=== PATIENT | female | born 1985 | race Caucasian/White ===

== ENCOUNTER 2017-12-04 01:40 | Emergency (ER) | payer OTHER ==
--- NOTE | 2017-12-04 01:55 | PDOC ---
Attending Attestation - HPI HPI: 12/04/17 03:39 The patient is a 32 year old female, with no significant PMH who presents to the emergency department with vaginal bleeding today. The patient reports that she has been experiencing some bleeding with clots today. She states that she has gone through 2 pads. She states that she was about 5 weeks when she found out that she was surely . The patient reports that she has an OB appointment in one week with her OB. she denies any urinary symptoms. The patient denies any other symptoms. She denies any fever, chills, nausea, vomit, diarrhea and constipation. She denies chest pain, shortness of breath, headache and dizziness. The patient denies any other complaints. PCP: Dr. Obrien Documentation prepared by Mary Wagner, acting as medical case manager for Shine Aquino DO. <Mary Wagner - Last Filed: 12/04/17 03:39> - Resident Resident Name: German Jeff - ED Attending Attestation I have performed the following: I have examined & evaluated the patient, The case was reviewed & discussed with the resident, I agree w/resident's findings & plan, Exceptions are as noted - Physicial Exam PE: 12/07/17 19:38 *Physical Exam General Appearance: Yes: Appropriately Dressed. No: Apparent Distress, Intoxicated HEENT: positive: EOMI, STEPHAN, Normal ENT Inspection, Normal Voice, TMs Normal, Pharynx Normal. negative: Pale Conjunctivae, Photophobia, Scleral Icterus (R), Scleral Icterus (L) Neck: positive: Trachea midline, Normal Thyroid, Supple. negative: Tender, Rigid, Carotid bruit, Stridor, Lymphadenopathy (R), Lymphadenopathy (L), Thyromegaly Respiratory/Chest: positive: Lungs Clear, Normal Breath Sounds. negative: Chest Tender, Respiratory Distress, Accessory Muscle Use, Labored Respiration, RES, Crackles, Rales, Rhonchi, Stridor, Wheezing, Dullness Cardiovascular: positive: Regular Rhythm, Regular Rate, S1, S2. negative: Edema , JVD, Murmur, Bradycardia, Tachycardia Vascular Pulses: Dorsalis-Pedis (R): 2+, Doralis-Pedis (L): 2+ Gastrointestinal/Abdominal: positive: Normal Bowel Sounds, Flat, Soft. negative : Tender, Organomegaly, Pulsatile Mass, Increased Bowel Sounds, Decreased BS, Distended, Guarding, Rebound, Hernia, Hepatomegaly, Spleenomegaly Lymphatic: negative: Adenopathy, Tenderness Musculoskeletal: positive: Normal Inspection. negative: CVA Tenderness, Decreased Range of Motion Extremity: positive: Normal Capillary Refill, Normal Inspection, Normal Range of Motion, Pelvis Stable. negative: Tender, Pedal Edema, Swelling, Erythema Integumentary: positive: Normal Color, Dry, Warm. negative: Cyanotic, Erythema , Jaundice, Rash Neurologic: positive: cyber security II-XII NML intact, Fully Oriented, Alert, Normal Mood/ Affect, Motor Strength 5/5. negative: EOM Palsy, Facial Droop, Sensory Deficit - Medical Decision Making 12/07/17 19:38 Pt was treated and released <Shine Aquino - Last Filed: 12/07/17 19:38>
[2017-12-04 02:30] LABS: BASO % 0.6 % (0-2.0); EOS % 1.1 % (0-4.5); HEMATOCRIT 40.7 % (32.4-45.2); MCH 29.5 pg (25.7-33.7); MCHC 34.5 g/dl (32.0-36.0); MEAN CELL VOLUME 85.6 fl (80-96); MEAN PLT VOLUME 9.1 fl (7.5-11.1); MONO % 7.3 % (3.8-10.2); PLATELET COUNT 329 K/MM3 (134-434); RBC 4.75 M/mm3 (3.60-5.2); RDW 13.1 % (11.6-15.6)
--- NOTE | 2017-12-04 02:43 | PDOC ---
History of Present Illness - General Stated Complaint: VAGINAL BLEEDING, Time Seen by Provider: 12/04/17 01:47 History Source: Patient Exam Limitations: No Limitations - History of Present Illness Initial Comments: 12/04/17 02:36 32F with pmh of asthma who found out she was last week presents with vaginal bleeding earlier today. No pain or cramping whatsoever. 2 pad worth of blood with clots. LMP October 28. 12/04/17 02:40 visit scheduled on Thursday. Past History - Past Medical History Allergies/Adverse Reactions: Allergies Allergy/AdvReac Type Severity Reaction Status Date / Time No Known Allergies Allergy Verified 12/04/17 02:01 Home Medications: Ambulatory Orders Vitamins (Sjr) - 1 tab PO DAILY 02/01/15 Asthma: Yes Cancer: No Cardiac Disorders: No Diabetes: No HTN: No Seizures: No Thyroid Disease: No - Reproductive History (#): 3 Para: 2 - Suicide/Smoking/Psychosocial Hx Smoking History: Never smoked Have you smoked in the past 12 months: No Hx Alcohol Use: No Drug/Substance Use Hx: No Substance Use Type: None Hx Substance Use Treatment: No Review of Systems - Review of Systems Able to Perform ROS?: Yes Is the patient limited Swedish proficient: No Constitutional: No: Symptoms Reported HEENTM: No: Symptoms Reported Respiratory: No: Symptoms reported Cardiac (ROS): No: Symptoms Reported ABD/GI: No: Symptoms Reported : No: Symptoms Reported Musculoskeletal: No: Symptoms Reported Integumentary: No: Symptoms Reported Neurological: No: Symptoms reported *Physical Exam - Physical Exam General Appearance: Yes: Nourished, Appropriately Dressed. No: Apparent Distress HEENT: positive: EOMI, STEPHAN, Normal ENT Inspection Respiratory/Chest: positive: Lungs Clear, Normal Breath Sounds. negative: Chest Tender, Respiratory Distress Cardiovascular: positive: Regular Rhythm, Regular Rate, S1, S2 Gastrointestinal/Abdominal: positive: Normal Bowel Sounds, Flat, Soft. negative : Tender Musculoskeletal: positive: Normal Inspection. negative: CVA Tenderness Extremity: positive: Normal Capillary Refill, Normal Inspection, Normal Range of Motion Integumentary: positive: Normal Color, Dry, Warm Neurologic: positive: Fully Oriented, Alert, Normal Mood/Affect ED Treatment Course - LABORATORY CBC & Chemistry Diagram: 12/04/17 02:21 12/04/17 02:21 Medical Decision Making - Medical Decision Making 12/04/17 02:44 Live intrauterine , corresponding to 8weeks and 2 days. FHR: 180 Labs all normal D/C with follow up next week. 12/04/17 03:34 12/04/17 03:35 *DC/Admit/Observation/Transfer Diagnosis at time of Disposition: Threatened miscarriage in early - Discharge Dispostion Disposition: HOME - Referrals Referrals: Faviola Obrien MD [Primary Care Provider] - - Patient Instructions Printed Discharge Instructions: DI for Threatened Additional Instructions: Follow up with your OBGYN next week. Come back to the ER for any new, worsening or concerning symptom. - Post Discharge Activity
[2017-12-04 02:53] VITALS: BP 137/82; PULSE 93; TEMP 98.7; BMI 30.4
[2017-12-04 03:04] LABS: ALBUMIN 3.7 g/dl (3.4-5.0); ANION GAP 7 (8-16); BILIRUBIN,TOTAL 0.1 mg/dL (0.2-1.0); BLOOD UREA NITROGEN 12 mg/dL (7-18); CALCIUM 9.1 mg/dL (8.5-10.1); CHLORIDE 103 mmol/L (98-107); CO2 27 mmol/L (21-32); CREATININE 0.9 mg/dL (0.55-1.02); GLUCOSE,RANDOM 98 mg/dL (74-106); POTASSIUM 4.5 mmol/L (3.5-5.1); SGOT/AST 20 U/L (15-37); SGPT/ALT 35 U/L (12-78); SODIUM 137 mmol/L (136-145); TOT PROT 7.6 g/dl (6.4-8.2)
[2017-12-04 03:19] LABS: ALK PHOS 74 U/L (45-117)
== END 2017-12-04 03:46 | disposition home or self-care (01) ==
LOC: JER 01:40
DX: O20.0 Threatened abortion (principal); Z3A.08 8 weeks gestation of pregnancy; J45.909 Unspecified asthma, uncomplicated
CPT/HCPCS: 36415; 76817-TC; 80053; 84702; 85025; 86850; 86900; 86901; 99283-25

== ENCOUNTER 2018-01-02 18:54 | Inpatient (IN) | payer OTHER ==
--- NOTE | 2018-01-02 19:13 | PDOC ---
History of Present Illness <ValdovinosHeather - Last Filed: 01/03/18 01:23> - History of Present Illness Initial Comments: 01/02/18 19:26 Ms. Garcia is a 32 yo female w/ pmh of recent medical 12/05/17 w/ subsequent confirmation of evacuation by TVUS as well as presentation to [facility] yesterday for RUQ abdominal pain who presents for evaluation of fever with nausea/vomiting at home as well as headache x2 days. Patient reports she had an ultrasound yesterday however was not told the results and sent home. Presents here as she continues to feel ill at this time. The patient denies chest pain, shortness of breath, headache and dizziness. Denies dysuria, frequency, urgency and hematuria. PCP: Dr. Obrien <Dallin Albrecht - Last Filed: 01/03/18 02:30> - General Chief Complaint: SIRS, Suspected/Possible Stated Complaint: FEVER Time Seen by Provider: 01/02/18 19:13 Past History <Heather Valdovinos - Last Filed: 01/03/18 01:23> - Past Medical History Asthma: Yes Cancer: No Cardiac Disorders: No COPD: No Diabetes: No HTN: No Seizures: No Thyroid Disease: No - Reproductive History (#): 3 Para: 2 Therapeutic (s) & number: No - Immunization History Immunization Up to Date: Yes - Suicide/Smoking/Psychosocial Hx Smoking History: Unknown if ever smoked Have you smoked in the past 12 months: No Information on smoking cessation initiated: No Hx Alcohol Use: No Drug/Substance Use Hx: No Substance Use Type: None Hx Substance Use Treatment: No <Dallin Albrecht - Last Filed: 01/03/18 02:30> - Past Medical History Allergies/Adverse Reactions: Allergies Allergy/AdvReac Type Severity Reaction Status Date / Time No Known Allergies Allergy Verified 12/04/17 02:01 Home Medications: Ambulatory Orders NK [No Known Home Medication] 01/02/18 Review of Systems - Review of Systems Comments:: 01/02/18 19:30 GENERAL/CONSTITUTIONAL: +High fever at home. No weakness. HEAD, EYES, EARS, NOSE AND THROAT: No change in vision. No ear pain or discharge. No sore throat. CARDIOVASCULAR: No chest pain or shortness of breath RESPIRATORY: No cough, wheezing, or hemoptysis. GASTROINTESTINAL: +N/V/D as described. GENITOURINARY: No dysuria, frequency, or change in urination. MUSCULOSKELETAL: No joint or muscle swelling or pain. No neck or back pain. SKIN: No rash NEUROLOGIC: No headache, vertigo, loss of consciousness, or change in strength/ sensation. ENDOCRINE: No increased thirst. No abnormal weight change HEMATOLOGIC/LYMPHATIC: No anemia, easy bleeding, or history of blood clots. ALLERGIC/IMMUNOLOGIC: No hives or skin allergy. <aDllin Albrecht - Last Filed: 01/03/18 02:30> *Physical Exam - Vital Signs Last Vital Signs Temp Pulse Resp BP Pulse Ox 98.8 F 95 H 99 H 131/66 99 01/02/18 22:48 01/02/18 22:48 01/02/18 22:48 01/02/18 22:48 01/02/18 22:48 <Heather Valdovinos - Last Filed: 01/03/18 01:23> - Vital Signs Last Vital Signs Temp Pulse Resp BP Pulse Ox 103.8 F H 130 H 16 125/83 100 01/02/18 18:54 01/02/18 18:54 01/02/18 18:54 01/02/18 18:54 01/02/18 18:54 - Physical Exam Comments: 01/02/18 19:31 GENERAL: Awake, alert, and fully oriented, in no acute distress HEAD: No signs of trauma, normocephalic, atraumatic EYES: PERRLA, EOMI, sclera anicteric, conjunctiva clear ENT: Auricles normal inspection, hearing grossly normal, nares patent, oropharynx clear without exudates. Moist mucosa NECK: Normal ROM, supple, no lymphadenopathy, JVD, or masses LUNGS: No distress, speaks full sentences, clear to auscultation bilaterally HEART: Regular rate and rhythm, normal S1 and S2, no murmurs, rubs or gallops, peripheral pulses normal and equal bilaterally. ABDOMEN: +RUQ TTP, right CVA tenderness. Soft, normoactive bowel sounds. No guarding, no rebound. No masses EXTREMITIES: Normal inspection, Normal range of motion, no edema. No clubbing or cyanosis. NEUROLOGICAL: Cranial nerves II through XII grossly intact. Normal speech, normal gait, no focal sensorimotor deficits SKIN: +Hot, Dry, normal turgor, no rashes or lesions noted. <Dallin Albrecht - Last Filed: 01/03/18 02:30> ED Treatment Course - LABORATORY CBC & Chemistry Diagram: 01/02/18 19:00 01/02/18 19:00 - ADDITIONAL ORDERS Additional order review: Laboratory Results 01/02/18 01/02/18 01/02/18 20:40 20:16 19:00 PT with INR INR PTT (Actin FS) VBG pH POC VBG pCO2 POC VBG pO2 Mixed VBG HCO3 Sodium Potassium Chloride Carbon Dioxide Anion Gap BUN Creatinine Creat Clearance w eGFR Random Glucose Lactic Acid Calcium Total Bilirubin AST ALT Alkaline Phosphatase Troponin I < 0.02 Total Protein Albumin Beta HCG, Quant 70.4 Urine Color Straw Urine Appearance Slcloudy Urine pH 6.0 Ur Specific [place] 1.004 Urine Protein Negative Urine Glucose (UA) Negative Urine Ketones Trace H Urine Blood 2+ H Urine Nitrite Negative Urine Bilirubin Negative Urine Urobilinogen 2.0 H Ur Leukocyte Esterase 1+ H Urine WBC (Auto) 45 Urine RBC (Auto) 1 Ur Epithelial Cells Few Urine Bacteria Few 01/02/18 01/02/18 01/02/18 19:00 19:00 19:00 PT with INR INR PTT (Actin FS) VBG pH 7.43 H POC VBG pCO2 38.4 POC VBG pO2 23.0 L Mixed VBG HCO3 24.8 Sodium 136 Potassium 3.4 L Chloride 101 Carbon Dioxide 26 Anion Gap 9 BUN 7 Creatinine 0.9 Creat Clearance w eGFR > 60 Random Glucose 113 H Lactic Acid 1.5 Calcium 8.2 L Total Bilirubin 0.5 AST 16 ALT 16 Alkaline Phosphatase 91 D Troponin I Total Protein 6.6 Albumin 2.7 L Beta HCG, Quant Urine Color Urine Appearance Urine pH Ur Specific [place] Urine Protein Urine Glucose (UA) Urine Ketones Urine Blood Urine Nitrite Urine Bilirubin Urine Urobilinogen Ur Leukocyte Esterase Urine WBC (Auto) Urine RBC (Auto) Ur Epithelial Cells Urine Bacteria 01/02/18 19:00 PT with INR 14.50 H INR 1.28 H PTT (Actin FS) 29.0 VBG pH POC VBG pCO2 POC VBG pO2 Mixed VBG HCO3 Sodium Potassium Chloride Carbon Dioxide Anion Gap BUN Creatinine Creat Clearance w eGFR Random Glucose Lactic Acid Calcium Total Bilirubin AST ALT Alkaline Phosphatase Troponin I Total Protein Albumin Beta HCG, Quant Urine Color Urine Appearance Urine pH Ur Specific [place] Urine Protein Urine Glucose (UA) Urine Ketones Urine Blood Urine Nitrite Urine Bilirubin Urine Urobilinogen Ur Leukocyte Esterase Urine WBC (Auto) Urine RBC (Auto) Ur Epithelial Cells Urine Bacteria 01/02/18 19:00 RBC 3.96 MCV 82.9 MCHC 34.4 RDW 12.7 MPV 8.8 Neutrophils % 77.6 D Lymphocytes % 11.1 D Monocytes % 10.8 H Eosinophils % 0.0 D Basophils % 0.5 - RADIOLOGY Radiology Studies Ordered: Category Date Time Status SPIRAL- RENAL-STONE CT [CT] Stat CT Scan 01/03/18 00:01 Taken TRANSVAGINAL ULTRASOUND US [US] Stat Ultrasound 01/02/18 21:06 Taken - Medications Given in the ED: ED Medications Discontinued Medications Generic Name Dose Route Start Last Admin Trade Name Freq PRN Reason Stop Dose Admin Acetaminophen 1,000 mg 01/02/18 19:23 01/02/18 19:48 Ofirmev Injection - IVPB 01/02/18 19:24 1,000 mg ONCE ONE Administration Sodium Chloride 1,000 mls @ 1,000 mls/hr 01/02/18 19:28 01/02/18 19:48 Normal Saline - IV 01/02/18 20:27 1,000 mls/hr ASDIR STA Administration Ceftriaxone Sodium 1,000 mg/ 50 mls @ 100 mls/hr 01/02/18 21:05 01/02/18 21: 16 Dextrose IVPB 01/02/18 21:34 100 mls/hr ONCE ONE Administration Magnesium Sulfate 2 gm 01/02/18 20:17 01/02/18 22:02 Magnesium Sulfate IVPB 01/02/18 20:18 2 gm ONCE ONE Administration Ondansetron HCl 4 mg 01/02/18 19:28 01/02/18 19:48 Zofran Injection IVPUSH 01/02/18 19:29 4 mg ONCE ONE Administration Potassium Chloride 40 meq 01/02/18 20:17 01/02/18 21:16 K-Dur - PO 01/02/18 20:18 40 meq ONCE ONE Administration <Heather Valdovinos - Last Filed: 01/03/18 01:23> - LABORATORY CBC & Chemistry Diagram: 01/02/18 19:00 01/02/18 19:00 <Dallin Albrecht - Last Filed: 01/03/18 02:30> Medical Decision Making - Medical Decision Making 01/02/18 22:56 Ms. Garcia is a 32 yo female w/ pmh as described who presents for evaluation of fever w/ RUQ tenderness. Patient initially evaluated w/ RUQ US (negative) and sepsis workup. Patient also noted to have beta to 70 as below. TVUS ordered to r/o retained products. US noted blood as below, patient also noted to have right CVA tenderness. CT ordered to evaluate for infected stone. 01/03/18 01:27 Patient TVUS significant for question of retained products. Discussed patient with CAGE MANAGER (Mary Lou) who will evaluate in AM. Patient also noted to have pyelonephritis as below. 01/03/18 01:51 Patient fever noted to have dissipated. Consulted CAGE MANAGER and IM on development - per CAGE MANAGER he is comfortable with outpatient follow-up as no current fever now. Patient given 1gm Rocephin for treatment of UTI vs. Pyelo as read on CT. Discussed with patient who will come in for evaluation and IV ABX for pyelonephritis. Laboratory Results - last 24 hr 01/02/18 01/02/18 01/02/18 19:00 19:00 19:00 WBC 13.6 H RBC 3.96 Hgb 11.3 Hct 32.8 D MCV 82.9 MCH 28.5 MCHC 34.4 RDW 12.7 Plt Count 299 MPV 8.8 Absolute Neuts (auto) 10.5 H Neutrophils % 77.6 D Lymphocytes % 11.1 D Monocytes % 10.8 H Eosinophils % 0.0 D Basophils % 0.5 Nucleated RBC % 0 PT with INR 14.50 H INR 1.28 H PTT (Actin FS) 29.0 VBG pH 7.43 H POC VBG pCO2 38.4 POC VBG pO2 23.0 L Mixed VBG HCO3 24.8 Sodium Potassium Chloride Carbon Dioxide Anion Gap BUN Creatinine Creat Clearance w eGFR Random Glucose Lactic Acid Calcium Total Bilirubin AST ALT Alkaline Phosphatase Troponin I Total Protein Albumin Beta HCG, Quant Urine Color Urine Appearance Urine pH Ur Specific [place] Urine Protein Urine Glucose (UA) Urine Ketones Urine Blood Urine Nitrite Urine Bilirubin Urine Urobilinogen Ur Leukocyte Esterase Urine WBC (Auto) Urine RBC (Auto) Ur Epithelial Cells Urine Bacteria 01/02/18 01/02/18 01/02/18 19:00 19:00 19:00 WBC RBC Hgb Hct MCV MCH MCHC RDW Plt Count MPV Absolute Neuts (auto) Neutrophils % Lymphocytes % Monocytes % Eosinophils % Basophils % Nucleated RBC % PT with INR INR PTT (Actin FS) VBG pH POC VBG pCO2 POC VBG pO2 Mixed VBG HCO3 Sodium 136 Potassium 3.4 L Chloride 101 Carbon Dioxide 26 Anion Gap 9 BUN 7 Creatinine 0.9 Creat Clearance w eGFR > 60 Random Glucose 113 H Lactic Acid 1.5 Calcium 8.2 L Total Bilirubin 0.5 AST 16 ALT 16 Alkaline Phosphatase 91 D Troponin I < 0.02 Total Protein 6.6 Albumin 2.7 L Beta HCG, Quant Urine Color Urine Appearance Urine pH Ur Specific [place] Urine Protein Urine Glucose (UA) Urine Ketones Urine Blood Urine Nitrite Urine Bilirubin Urine Urobilinogen Ur Leukocyte Esterase Urine WBC (Auto) Urine RBC (Auto) Ur Epithelial Cells Urine Bacteria 01/02/18 01/02/18 20:16 20:40 WBC RBC Hgb Hct MCV MCH MCHC RDW Plt Count MPV Absolute Neuts (auto) Neutrophils % Lymphocytes % Monocytes % Eosinophils % Basophils % Nucleated RBC % PT with INR INR PTT (Actin FS) VBG pH POC VBG pCO2 POC VBG pO2 Mixed VBG HCO3 Sodium Potassium Chloride Carbon Dioxide Anion Gap BUN Creatinine Creat Clearance w eGFR Random Glucose Lactic Acid Calcium Total Bilirubin AST ALT Alkaline Phosphatase Troponin I Total Protein Albumin Beta HCG, Quant 70.4 Urine Color Straw Urine Appearance Slcloudy Urine pH 6.0 Ur Specific [place] 1.004 Urine Protein Negative Urine Glucose (UA) Negative Urine Ketones Trace H Urine Blood 2+ H Urine Nitrite Negative Urine Bilirubin Negative Urine Urobilinogen 2.0 H Ur Leukocyte Esterase 1+ H Urine WBC (Auto) 45 Urine RBC (Auto) 1 Ur Epithelial Cells Few Urine Bacteria Few 01/03/18 02:26 <Dallin Albrecht - Last Filed: 01/03/18 02:30> *DC/Admit/Observation/Transfer <Heather Valdovinos - Last Filed: 01/03/18 01:23> - Discharge Dispostion Decision to Admit order: Yes <Dallin Albrecht - Last Filed: 01/03/18 02:30> Diagnosis at time of Disposition: Pyelonephritis, Retained products of conception Fever Qualifiers: Fever type: unspecified Qualified Code(s): R50.9 - Fever, unspecified
[2018-01-02] MEDS ORDERED: ACETAMINOPHEN INJECTION 100 ML IVPB ONE (19:17)
[2018-01-02] MEDS ORDERED: ACETAMINOPHEN 1000 MG/100 ML VIAL (NON FORMULARY) IVPB ONE (19:23)
--- NOTE | 2018-01-02 19:24 | PDOC ---
Attending Attestation - [facility] HPI: 01/02/18 19:46 The patient is a 32 year old female, with a significant past medical history of asthma and recent medical (12/05/17), who presents to the ED complaining of abdominal pain, headache, neck pain, fever, nausea, vomit and generalized weakness for the past 2 days. She notes that she was at [facility] yesterday for the same symptoms. She presents here to day because her symptoms have not improved. She reports she had an ultrasound yesterday however was not told the results and sent home. She describes her abdominal pain as localized in the right upper quadrant, ranging from mild to moderate, without radiation or modifying factors. The patient denies chest pain, shortness of breath, and dizziness. Denies chills , diarrhea or constipation. Denies dysuria, frequency, urgency and hematuria. Allergies: None Past surgical history: None reported Social History: No alcohol, tobacco or drug use reported - Physicial Exam PE: 01/02/18 19:46 Constitutional: Awake, alert, oriented. No acute distress. Head: Normocephalic. Atraumatic Eyes: PERRL. EOMI. Conjunctivae are not pale. ENT: Mucous membranes are moist and intact. Posterior pharynx without exudates or erythema. Uvula midline. Neck: Supple. Full ROM. No lymphadenopathy. Cardiovascular: (+) Tachycardia. Regular rhythm. S1, S2 regular. Distal pulses are 2+ and symmetric. Pulmonary/Chest: No evidence of respiratory distress. Clear to auscultation bilaterally No wheezing, rales or rhonchi. Abdominal: (+) RUQ tenderness to palpation. Soft and non-distended. No rebound , guarding or rigidity. No organomegaly. No palpable masses. Good bowel sounds. Back: (+) Right sided flank pain. No CVA tenderness. Musculoskeletal: No edema. No cyanosis. No clubbing. Full range of motion in all extremities. Nocalf tenderness. Radial/pedal pulses are intact and 2+ bilaterally Skin: Skin is warm and dry. No petechiae. No purpura. Neurological: Alert and oriented to person, place, and time. Cranial nerves II -XII are grossly intact. Normal speech. Strength is grossly symmetric. No sensory deficits. Psychiatric: Good eye contact. Normal interaction, affect and behavior. <Shine Amezcua Filed: 01/02/18 21:05> - Resident Resident Name: Dallin Albrecht - ED Attending Attestation I have performed the following: I have examined & evaluated the patient, The case was reviewed & discussed with the resident, I agree w/resident's findings & plan - Medical Decision Making 01/02/18 21:08 Pt has right flank pain on exam; possible pyelo vs kidney stones 01/02/18 21:09 Pt has bhcg of 70 despite having medication induced on Dec 04. Possible retained products. 01/02/18 22:48 Patient Name: PUJA MOODY THIS IS A PRELIMINARY REPORT FROM [facility] DATE OF SERVICE: 2018-01-02 20:28:35 IMAGES: 57 EXAM: US ABDOMEN LIMITED HISTORY: Right upper quadrant pain. TECHNIQUE: Sonographic imaging was performed utilizing transabdominal approach. Additional Doppler flow of the liver were submitted for dictation. COMPARISON: None available. FINDINGS: Liver: Normal. Bile Ducts: Intrahepatic and extrahepatic bile ducts are not dilated. The common bile duct measures 0.5 cm. Gallbladder: No evidence of shadowing cholelithiasis, gallbladder wall thickening, or pericholecystic fluid. Negative sonographic Matos's sign. Pancreas: The pancreatic head is unremarkable. Right Kidney: No pelvicaliceal dilatation. No stones. Aorta and Inferior Vena Cava: Visualized portions appear normal. THIS DOCUMENT HAS BEEN ELECTRONICALLY SIGNED 01/03/18 01:08 Patient Name: PUJA MOODY THIS IS A PRELIMINARY REPORT FROM [facility] DATE OF SERVICE: 2018-01-02 22:51:14 IMAGES: 88 EXAM: Pelvic ultrasound with Doppler study of the bilateral ovaries HISTORY: Rule out retained products COMPARISON: None. FINDINGS: The endometrial complex is thickened and heterogeneous. Thickness measures approximately 1.3 cm. Therefore, retained products of conception must be considered. Cervical nabothian cysts noted. The bilateral ovaries are normal with positive arteriovenous Doppler blood flow. There is some free fluid in the pelvic cul-de-sac. 01/03/18 01:17 Dr. Zambrano is aware of the patient and he wants her admitted to medicine as she has a fever and she will be seen by him for a D+C should she require one. 01/03/18 01:18 Pt will be admitted for UTI and pyelo. <Heather Valdovinos - Last Filed: 01/03/18 01:18>
[2018-01-02] MEDS ORDERED: SODIUM CHLORIDE 1,000 ML IV STA (19:28)
[2018-01-02] MEDS ORDERED: ONDANSETRON 4 MG/2 ML VIAL IVPUSH ONE (19:28)
[2018-01-02 19:42] LABS: BASO % 0.5 % (0-2.0); HEMATOCRIT 32.8 % (32.4-45.2); HEMOGLOBIN 11.3 GM/dL (10.7-15.3); LYMPH % 11.1 % (8-40); MCH 28.5 pg (25.7-33.7); MCHC 34.4 g/dl (32.0-36.0); MEAN CELL VOLUME 82.9 fl (80-96); MEAN PLT VOLUME 8.8 fl (7.5-11.1); MONO % 10.8 % (3.8-10.2); NEUT % 77.6 % (42.8-82.8); PLATELET COUNT 299 K/MM3 (134-434); RBC 3.96 M/mm3 (3.60-5.2); RDW 12.7 % (11.6-15.6); WHITE BLOOD COUNT 13.6 K/mm3 (4.0-10.0)
[2018-01-02 19:55] LABS: INR 1.28 (0.83-1.09); PROTHROMBIN TIME (PATIENT) 14.5 SEC (9.7-13.0)
[2018-01-02 19:57] LABS: VENOUS PC02 38.4 mmHg (38-52); VENOUS PH 7.43 (7.32-7.42)
[2018-01-02 20:05] LABS: ALBUMIN 2.7 g/dl (3.4-5.0); ANION GAP 9 MMOL/L (8-16); BILIRUBIN,TOTAL 0.5 mg/dL (0.2-1.0); CALCIUM 8.2 mg/dL (8.5-10.1); CHLORIDE 101 mmol/L (98-107); CO2 26 mmol/L (21-32); CREATININE 0.9 mg/dL (0.55-1.02); GLUCOSE,RANDOM 113 mg/dL (74-106); POTASSIUM 3.4 mmol/L (3.5-5.1); SGPT/ALT 16 U/L (12-78); SODIUM 136 mmol/L (136-145); TOT PROT 6.6 g/dl (6.4-8.2)
[2018-01-02 20:12] LABS: ALK PHOS 91 U/L (45-117); BLOOD UREA NITROGEN 7 mg/dL (7-18); SGOT/AST 16 U/L (15-37)
[2018-01-02] MEDS ORDERED: MAGNESIUM SULF 50% (8.12 MEQ/2 ML-1 GM VIAL) IVPB ONE (20:17)
[2018-01-02] MEDS ORDERED: POTASSIUM CHLORIDE TABS 20 MEQ TABLET.ER (FP) PO ONE ×2 (20:17→21:07)
[2018-01-02 20:29] LABS: URINE APPEARANCE SLCLOUDY; URINE BILIRUBIN NEGATIVE (<2.0 mg/dL); URINE COLOR STRAW; URINE GLUCOSE (UA) NEGATIVE (NEGATIVE); URINE KETONE TRACE (NEGATIVE); URINE NITRITE NEGATIVE (NEGATIVE); URINE PROTEIN NEGATIVE (NEGATIVE)
[2018-01-02 20:50] LABS: URINE LEUK ESTERASE 1+ (NEGATIVE)
[2018-01-02 20:51] LABS: EPI CELLS FEW /HPF (FEW); URINE BACTERIA FEW /hpf (NONE SEEN)
[2018-01-02] MEDS ORDERED: CEFTRIAXONE 1,000 MG in DEXTROSE 5%-WATER - 50 ML IVPB ONE (21:05)
[2018-01-02] MEDS ORDERED: cefTRIAXone SODIUM 1 GM VIAL ONE (21:08)
[2018-01-02] MEDS ORDERED: EPINEPHrine/PF 1 MG/1 ML (1:1,000) AMPULE ONE (23:53)
[2018-01-03] MEDS ORDERED: CEFTRIAXONE 1,000 MG in DEXTROSE 5%-WATER - 50 ML IVPB ONE (01:49)
[2018-01-03] MEDS ORDERED: CEFTRIAXONE 1 GM/50 ML BAG ONE (02:14)
--- NOTE | 2018-01-03 03:01 | HP ---
Admitting History and Physical - Admission Chief Complaint: fever and chills History of Present Illness: this is a 32 y/o female patient presented to the ER feeling malaise, febrile and chills. according to the patient that started few days ago, and has worsened to include right sided flank pain. the patient had an elective about 4 weeks ago, and she has been having vaginal bleeding ever since then however the amount has decreased. History Source: Patient, Family Member Limitations to Obtaining History: No Limitations - Past Medical History ...LMP: 07/04/14 - Smoking History Smoking history: Unknown if ever smoked Have you smoked in the past 12 months: No - Alcohol/Substance Use Hx Alcohol Use: No - Social History History of Recent Travel: No Home Medications - Allergies Allergies/Adverse Reactions: Allergies Allergy/AdvReac Type Severity Reaction Status Date / Time No Known Allergies Allergy Verified 12/04/17 02:01 - Home Medications Home Medications: Ambulatory Orders NK [No Known Home Medication] 01/02/18 Review of Systems - Review of Systems Constitutional: reports: Chills, Fever, Malaise Eyes: reports: No Symptoms HENT: reports: No Symptoms Neck: reports: No Symptoms Cardiovascular: reports: No Symptoms Respiratory: reports: No Symptoms Gastrointestinal: reports: No Symptoms Genitourinary: reports: Flank Pain, Frequency, Menses Breasts: reports: No Symptoms Reported Musculoskeletal: reports: No Symptoms Integumentary: reports: No Symptoms Neurological: reports: No Symptoms Endocrine: reports: No Symptoms Physical Examination Vital Signs: Vital Signs Temperature 98.8 F 01/02/18 22:48 Pulse Rate 95 H 01/02/18 22:48 Respiratory Rate 99 H 01/02/18 22:48 Blood Pressure 131/66 01/02/18 22:48 O2 Sat by Pulse Oximetry (%) 99 01/02/18 22:48 Constitutional: Yes: Well Nourished, No Distress, Calm Eyes: Yes: WNL, Conjunctiva Clear, EOM Intact HENT: Yes: WNL, Atraumatic, Normocephalic Neck: Yes: WNL, Supple, Trachea Midline Cardiovascular: Yes: WNL, Regular Rate and Rhythm Respiratory: Yes: WNL, Regular, CTA Bilaterally Gastrointestinal: Yes: WNL, Normal Bowel Sounds, Soft, Abdomen, Obese, Other ( RUQ pain) ...Rectal Exam: Yes: Deferred Renal/: Yes: CVA Tenderness - Right Labs: CBC, BMP 01/02/18 19:00 01/02/18 19:00 Imaging - Results Chest X-ray: Report Reviewed, Image Reviewed Cat Scan: Report Reviewed, Image Reviewed Ultrasound: Report Reviewed, Image Reviewed Problem List - Problems (1) Fever Assessment/Plan: 2/2 pyleonephritis tylenol prn fever treat the underlying cause Code(s): R50.9 - FEVER, UNSPECIFIED Qualifiers: Fever type: unspecified Qualified Code(s): R50.9 - Fever, unspecified (2) Pyelonephritis Assessment/Plan: CT scan showed inflammation of the kidney with possible pyelonephritis start ceftriaxone 1g daily consult ID Code(s): N12 - TUBULO-INTERSTITIAL NEPHRITIS, NOT SPCF ACUTE OR CHRONIC (3) Retained products of conception Assessment/Plan: OBGYN consulted they are not considering that the patient is having fever from the blood clots or the retained products of the conception, spoke to Dr. Barreto and he stated that it is unlikely that the fever is from the products will reconsult the obgyn in the morning to further evaluate the patient. Code(s): [id number] -
[2018-01-03] MEDS ORDERED: ACETAMINOPHEN 1000 MG/100 ML VIAL (NON FORMULARY) IVPB ONE (04:02)
[2018-01-03] MEDS ORDERED: ACETAMINOPHEN INJECTION 100 ML IVPB ONE (04:11)
[2018-01-03 06:36] VITALS: BMI 32.4
[2018-01-03] MEDS ORDERED: ONDANSETRON 4 MG/2 ML VIAL IVPUSH PRN (09:11)
[2018-01-03] MEDS ORDERED: cefTRIAXone SODIUM 1 GM VIAL ONE (10:06)
[2018-01-03] MEDS ORDERED: DEXTROSE 5%-WATER - 50 ML IVPB ONE (10:07)
[2018-01-03] MEDS: ACETAMINOPHEN 325 MG TABLET (FP) PO PRN ×2 (10:27→17:51)
[2018-01-03] MEDS: D5-1/2NS+10 MEQ KCL - 10 MEQ/1,000 ML INFUS.BAG IV SCH ×2 (10:29→22:56)
[2018-01-03] MEDS: CEFTRIAXONE 1 GM in DEXTROSE 5%-WATER - 50 ML IVPB SCH (10:57)
--- NOTE | 2018-01-03 11:25 | PN ---
Progress Note, Physician Chief Complaint: Some suprapubic pain History of Present Illness: 32 year old female, with a significant past medical history of asthma and recent medical (12/05/17), who presents to the ED complaining of abdominal pain, headache, neck pain, fever, nausea, vomit and generalized weakness for the past 2 days - Current Medication List Current Medications: Active Medications Acetaminophen (Tylenol -) 650 mg PO Q3H PRN PRN Reason: FEVER Last Admin: 01/03/18 10:27 Dose: 650 mg Potassium Chloride/Dextrose/Sod Cl (D5-1/2ns+10 Meq Kcl -) 10 meq in 1,000 mls @ 100 mls/hr IV ASDIR VINAY Last Admin: 01/03/18 10:29 Dose: 100 mls/hr Ceftriaxone Sodium 1 gm/ (Dextrose) 50 mls @ 100 mls/hr IVPB DAILY VINAY Last Admin: 01/03/18 10:57 Dose: 100 mls/hr Metronidazole (Flagyl 500mg Premixed Ivpb -) 500 mg in 100 mls @ 100 mls/hr IVPB Q8H-IV VINAY Ondansetron HCl (Zofran Injection) 4 mg IVPUSH Q6H PRN PRN Reason: NAUSEA Last Admin: 01/03/18 10:25 Dose: 4 mg - Objective Vital Signs: Vital Signs Temperature 100.2 F H 01/03/18 05:06 Pulse Rate 105 H 01/03/18 05:06 Respiratory Rate 20 01/03/18 05:06 Blood Pressure 126/72 01/03/18 05:06 O2 Sat by Pulse Oximetry (%) 100 01/03/18 04:04 Young F comfortable c/o suprpubic and Rt CVA Pain HEENT: Mm moist, no anemia, PERRLA EOMI NECK: No JVD No Bruit CHEST: CTA B/l CVS: s1S2 R no m/g/r ABD: Obese mild suprapubic tenderness BS + EXT: No edema feet, , no calf tenderness, Rt CVA tenderness, Pulses +2 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 Labs: CBC, BMP 01/02/18 19:00 01/02/18 19:00 INR, PTT INR 1.28 (0.83-1.09) H 01/02/18 19:00 - ....Imaging Chest X-ray: Report Reviewed (Normal) Cat Scan: Report Reviewed (Rt Perinephric straininding) Ultrasound: Report Reviewed (Pelvic: enlarged uterous retained produc to conception) Problem List - Problems (1) Pyelonephritis Assessment/Plan: Elevated TWBC , typical symptoms, + UA Cont Ceftriaxobne F/U Blood and urine culture, tylenol, IV Hydration, Zofran PRN Code(s): N12 - TUBULO-INTERSTITIAL NEPHRITIS, NOT SPCF ACUTE OR CHRONIC (2) Retained products of conception Assessment/Plan: S/P will F/U recommendations Code(s): OGV0122 - (3) Hypokalemia Assessment/Plan: Repleted F/U BMP Code(s): E87.6 - HYPOKALEMIA (4) Asthma Assessment/Plan: at present asymptomatic albuterol MDI PRN Code(s): J45.909 - UNSPECIFIED ASTHMA, UNCOMPLICATED Qualifiers: Asthma severity: mild Asthma persistence: intermittent (5) Obesity (BMI 30.0-34.9) Assessment/Plan: Nutrition consult as pot patient. Code(s): E66.9 - OBESITY, UNSPECIFIED
[2018-01-03 12:16] LABS: BASO % 0.2 % (0-2.0); EOS % 0.1 % (0-4.5); HEMATOCRIT 32.1 % (32.4-45.2); HEMOGLOBIN 10.8 GM/dL (10.7-15.3); LYMPH % 11.9 % (8-40); MCH 27.9 pg (25.7-33.7); MCHC 33.6 g/dl (32.0-36.0); MEAN CELL VOLUME 83.1 fl (80-96); MEAN PLT VOLUME 8.6 fl (7.5-11.1); MONO % 12.2 % (3.8-10.2); NEUT % 75.6 % (42.8-82.8); PLATELET COUNT 303 K/MM3 (134-434); RBC 3.87 M/mm3 (3.60-5.2); RDW 12.8 % (11.6-15.6); WHITE BLOOD COUNT 15.2 K/mm3 (4.0-10.0)
[2018-01-03 12:43] LABS: ALBUMIN 2.5 g/dl (3.4-5.0); ANION GAP 9 MMOL/L (8-16); BILIRUBIN,TOTAL 0.3 mg/dL (0.2-1.0); BLOOD UREA NITROGEN 7 mg/dL (7-18); CALCIUM 8.1 mg/dL (8.5-10.1); CHLORIDE 104 mmol/L (98-107); CO2 25 mmol/L (21-32); CREATININE 0.6 mg/dL (0.55-1.02); GLUCOSE,RANDOM 137 mg/dL (74-106); MAGNESIUM 2.3 mg/dL (1.8-2.4); POTASSIUM 3.8 mmol/L (3.5-5.1); SGOT/AST 10 U/L (15-37); SGPT/ALT 14 U/L (12-78); SODIUM 138 mmol/L (136-145); TOT PROT 6.4 g/dl (6.4-8.2)
[2018-01-03 12:44] LABS: ALK PHOS 84 U/L (45-117)
--- NOTE | 2018-01-04 01:11 | CONS ---
DATE OF CONSULTATION: 01/03/2018 REASON FOR CONSULTATION: Fever and chills, rule out retained products. HISTORY OF PRESENT ILLNESS: This is patient is a 33-year-old female, 3, para 2 with 2 normal previous vaginal deliveries, states that she had a medical at 8 weeks gestation at [facility] approximately 3 weeks ago. She was doing well with some minimal vaginal bleeding for 2 weeks after the procedure. The bleeding has stopped now. Patient had come to the ER last night complaining of fever, malaise, and with some nausea and vomiting, complaining of the right-sided flank pain. Pelvic sonogram showed a small hypoechoic lesion in the endometrium, possibility of blood clot, but no retained products were seen. No blood flow to the hypoechoic area was noted. CT scan was consistent with possible hydronephrosis. On admission, temperature was 102 degrees Fahrenheit. Her weight count was 13.6, hemoglobin 11.3, hematocrit 32.8. Urine showed 2+ blood and 1+ leukocyte esterase with 4-5 WBCs. PHYSICAL EXAMINATION: General: Patient was alert, oriented, in no distress, comfortable. Abdomen: Soft, nontender. No masses were palpable. Pelvic: Examination showed external genitalia to be normal. Vagina had no blood seen in the vaginal vault. Cervical os was closed. Uterus was normal size, anteverted, nontender. Adnexa had no masses palpable. IMPRESSION: Normal gynecologic examination. Doubt retained products. Possible small blood clot in the uterus, which is most likely secondary to the induced . Fever is most likely related to pyelonephritis. No evidence of endometritis on physical examination. RECOMMENDATIONS: Advise IV antibiotics pending UA and culture. If the culture was negative and the patient continued to have fever, dilation and curettage may be recommended. I will follow up with you. For now, please continue IV antibiotics and monitor temperature. RON LIVINGSTON M.D. [id number]
[2018-01-04 07:56] LABS: BASO % 0.3 % (0-2.0); EOS % 0.8 % (0-4.5); HEMATOCRIT 30.7 % (32.4-45.2); HEMOGLOBIN 10.5 GM/dL (10.7-15.3); LYMPH % 26.7 % (8-40); MCH 28.2 pg (25.7-33.7); MCHC 34.1 g/dl (32.0-36.0); MEAN CELL VOLUME 82.7 fl (80-96); MEAN PLT VOLUME 8.2 fl (7.5-11.1); MONO % 9.8 % (3.8-10.2); NEUT % 62.4 % (42.8-82.8); PLATELET COUNT 328 K/MM3 (134-434); RBC 3.72 M/mm3 (3.60-5.2); RDW 13.1 % (11.6-15.6); WHITE BLOOD COUNT 9.6 K/mm3 (4.0-10.0)
[2018-01-04 08:09] LABS: ALBUMIN 2.4 g/dl (3.4-5.0); ANION GAP 8 MMOL/L (8-16); BLOOD UREA NITROGEN 5 mg/dL (7-18); CHLORIDE 107 mmol/L (98-107); CO2 26 mmol/L (21-32); GLUCOSE,RANDOM 125 mg/dL (74-106); POTASSIUM 3.8 mmol/L (3.5-5.1); SGOT/AST 11 U/L (15-37); SODIUM 141 mmol/L (136-145)
[2018-01-04 08:12] LABS: ALK PHOS 75 U/L (45-117); BILIRUBIN,TOTAL 0.2 mg/dL (0.2-1.0); CREATININE 0.6 mg/dL (0.55-1.02); SGPT/ALT 12 U/L (12-78); TOT PROT 6.2 g/dl (6.4-8.2)
[2018-01-04] MEDS ORDERED: cefTRIAXone SODIUM 1 GM VIAL ONE (08:59)
[2018-01-04] MEDS ORDERED: DEXTROSE 5%-WATER - 50 ML IVPB ONE (08:59)
[2018-01-04] MEDS: CEFTRIAXONE 1 GM in DEXTROSE 5%-WATER - 50 ML IVPB SCH (09:03)
[2018-01-04] MEDS: ACETAMINOPHEN 325 MG TABLET (FP) PO PRN (09:04)
[2018-01-04] MEDS: D5-1/2NS+10 MEQ KCL - 10 MEQ/1,000 ML INFUS.BAG IV SCH (09:10)
--- NOTE | 2018-01-04 10:38 | EKG ---
Test Reason : Blood Pressure : / mmHG Vent. Rate : 125 BPM Atrial Rate : 125 BPM P-R Int : 136 ms QRS Dur : 072 ms QT Int : 294 ms P-R-T Axes : 039 030 012 degrees QTc Int : 424 ms SINUS TACHYCARDIA CANNOT RULE OUT ANTERIOR INFARCT , AGE UNDETERMINED ABNORMAL ECG NO PREVIOUS ECGS AVAILABLE Confirmed by HUMBERTO GIRALDO MD ([id number]) on 01/04/2018 10:38:16 AM Referred By: Confirmed By:HUMBERTO GIRALDO MD
[2018-01-04 11:02] VITALS: BP 116/60; PULSE 102; TEMP 98.1
[2018-01-04] MEDS ORDERED: IBUPROFEN 600 MG TABLET (FP) PO ONE (11:16)
--- NOTE | 2018-01-04 12:01 | PN ---
Teaching Attending Note Name of Resident: Elvis Costello ATTENDING PHYSICIAN STATEMENT I saw and evaluated the patient. I reviewed the resident's note and discussed the case with the resident. I agree with the resident's findings and plan as documented. SUBJECTIVE: Patient complains of headache, similar to her usual migraine. OBJECTIVE: Vital Signs Period Temp Pulse Resp BP Sys/Vaughan Pulse Ox Last 24 Hr 98.0 F-99.2 F 86-106 18-20 116-144/60-87 100 HEART: S1S2, RRR LUNGS: Clear ABDOMEN: Obese, soft, non-tender, non-distended, normal BS, (+) left CVA tenderness EXTREMITIES: No edema Laboratory Results - last 24 hr 01/03/18 01/03/18 01/03/18 11:42 11:42 11:42 WBC 15.2 H RBC 3.87 Hgb 10.8 Hct 32.1 L MCV 83.1 MCH 27.9 MCHC 33.6 RDW 12.8 Plt Count 303 MPV 8.6 Absolute Neuts (auto) 11.4 H Neutrophils % 75.6 Lymphocytes % 11.9 Monocytes % 12.2 H Eosinophils % 0.1 D Basophils % 0.2 Nucleated RBC % 0 Sodium 138 Cancelled Potassium 3.8 Cancelled Chloride 104 Cancelled Carbon Dioxide 25 Cancelled Anion Gap 9 Cancelled BUN 7 Cancelled Creatinine 0.6 Cancelled Creat Clearance w eGFR > 60 Cancelled Random Glucose 137 H Cancelled Calcium 8.1 L Cancelled Magnesium 2.3 Total Bilirubin 0.3 Cancelled AST 10 L Cancelled ALT 14 Cancelled Alkaline Phosphatase 84 Cancelled Total Protein 6.4 Cancelled Albumin 2.5 L Cancelled Beta HCG, Quant 64.8 01/04/18 01/04/18 07:00 07:00 WBC 9.6 RBC 3.72 Hgb 10.5 L Hct 30.7 L MCV 82.7 MCH 28.2 MCHC 34.1 RDW 13.1 Plt Count 328 MPV 8.2 Absolute Neuts (auto) 6.0 Neutrophils % 62.4 Lymphocytes % 26.7 D Monocytes % 9.8 Eosinophils % 0.8 D Basophils % 0.3 Nucleated RBC % 0 Sodium 141 Potassium 3.8 Chloride 107 Carbon Dioxide 26 Anion Gap 8 BUN 5 L Creatinine 0.6 Creat Clearance w eGFR > 60 Random Glucose 125 H Calcium 8.0 L Magnesium Total Bilirubin 0.2 AST 11 L ALT 12 Alkaline Phosphatase 75 Total Protein 6.2 L Albumin 2.4 L Beta HCG, Quant Current Medications Generic Name Dose Route Start Last Admin Trade Name Michael PRN Reason Stop Dose Admin Acetaminophen 650 mg 01/03/18 09:09 01/04/18 09:04 Tylenol - PO 650 mg Q3H PRN Administration FEVER Potassium Chloride/Dextrose/Sod Cl 10 meq in 1,000 mls @ 100 mls/hr 01/03/18 09:15 01/04/18 09:10 D5-1/2ns+10 Meq Kcl - IV 100 mls/hr ASDIR VINAY Administration Ceftriaxone Sodium 1 gm/ 50 mls @ 100 mls/hr 01/03/18 10:00 01/04/18 09:03 Dextrose IVPB 100 mls/hr DAILY VINAY Administration Ondansetron HCl 4 mg 01/03/18 09:11 01/03/18 10:25 Zofran Injection IVPUSH 4 mg Q6H PRN Administration NAUSEA ASSESSMENT AND PLAN: This is a 32 year old woman with a history of elective termination of about 4 weeks ago who presented to the ED with fever, chills, and right flank pain. 1. Sepsis secondary to pyelonephritis - Fever, leukocytosis improved - On Rocephin - Ok for discharge home 2. Hypokalemia - Improved 3. Obesity with BMI 32.4
--- NOTE | 2018-01-04 13:35 | DS ---
Physical Exam: SUBJECTIVE: Patient seen and examined at bedside wants to go home feels better denies any further vaginal bleeding or cramping OBJECTIVE: Vital Signs Period Temp Pulse Resp BP Sys/Vaughan Pulse Ox Last 24 Hr 98.0 F-99.2 F 86-106 18-20 116-144/60-87 100 PHYSICAL EXAM GENERAL: The patient is awake, alert, and fully oriented, in no acute distress. HEAD: Normal with no signs of trauma. NECK: Trachea midline, full range of motion, supple. LUNGS: Breath sounds equal, clear to auscultation bilaterally, no wheezes, no crackles, no accessory muscle use. HEART: Regular rate and rhythm, S1, S2 without murmur, rub or gallop. ABDOMEN: Soft, nontender, nondistended. No suprapubic tenderness. mild right sided CVA tenderness but improved LABS Laboratory Results - last 24 hr 01/04/18 01/04/18 07:00 07:00 WBC 9.6 RBC 3.72 Hgb 10.5 L Hct 30.7 L MCV 82.7 MCH 28.2 MCHC 34.1 RDW 13.1 Plt Count 328 MPV 8.2 Absolute Neuts (auto) 6.0 Neutrophils % 62.4 Lymphocytes % 26.7 D Monocytes % 9.8 Eosinophils % 0.8 D Basophils % 0.3 Nucleated RBC % 0 Sodium 141 Potassium 3.8 Chloride 107 Carbon Dioxide 26 Anion Gap 8 BUN 5 L Creatinine 0.6 Creat Clearance w eGFR > 60 Random Glucose 125 H Calcium 8.0 L Total Bilirubin 0.2 AST 11 L ALT 12 Alkaline Phosphatase 75 Total Protein 6.2 L Albumin 2.4 L HOSPITAL COURSE: Date of Admission:01/03/18 Date of Discharge: 01/04/18 32F with no PMH s/p 4 weeks ago presents with vaginal clots and found to have a UTI. patient feels much better right VVA pain and tenderness significantly improved. She was treated with IV Abx. Urine culture negative leukocytosis normalized. now Afebrile. 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 Barreto who states patiet is safe for discharge with PO Abx ad [facility]. Minutes to complete discharge: 35 Discharge Summary Reason For Visit: PYELONEPHRITIS Current Active Problems Asthma (Acute) Fever (Acute) Hypokalemia (Acute) Obesity (BMI 30.0-34.9) (Acute) Pyelonephritis (Acute) Retained products of conception (Acute) Condition: Stable - Instructions Diet, Activity, Other Instructions: you were admitted for vaginal bleeding with clots and a uriary tract infection. You were found to have pyelonephritis and you were treated with antibiotics. Please pcik up your antibiotics from the pharmacy you will take it twice a day for 7 days. if you have fever chills or worsening pain or worsening bleeding please go to the nearest emergency room. Please follow up with your primary care doctor. [facility] and give [facility] the [facility] report. Referrals: ON STAFF,NOT [Non Staff, Medical] - 1 Week Disposition: HOME - Home Medications Comprehensive Discharge Medication List: Ambulatory Orders Cephalexin Monohydrate [Keflex -] 500 mg PO BID #14 capsule 01/04/18 This patient is new to me today: Yes Date on this admission: 01/04/18 Emergency Visit: Yes ED Registration Date: 01/03/18 Care time: The patient presented to the Emergency Department on the above date and was hospitalized for further evaluation of their emergent condition. Critical Care patient: No - Discharge Referral [facility]erred to [facility] Med P.C.: No
== END 2018-01-04 14:45 | disposition home or self-care (01) | DRG 564 ==
LOC: JER 18:54 → JERBED 01-03 02:30 → J5S 01-03 04:59
PROVIDERS: ADMIT Internal Medicine; ATTEND Internal Medicine
DX: O03.87 Sepsis following complete or unspecified spontaneous abortion (principal); O04.5 Genital tract and pelvic infection following (induced) termination of pregnancy; N12 Tubulo-interstitial nephritis, not specified as acute or chronic; E66.9 Obesity, unspecified; Z68.32 Body mass index [BMI] 32.0-32.9, adult; E87.6 Hypokalemia; O03.39 Incomplete spontaneous abortion with other complications; J45.909 Unspecified asthma, uncomplicated; N88.8 Other specified noninflammatory disorders of cervix uteri; Y84.8 Other medical procedures as the cause of abnormal reaction of the patient, or of later complication, without mention of misadventure at the time of the procedure
CPT/HCPCS: 36415; 74176; 76705-TC; 76830-TC; 80053; 81003; 81015; 82803; 83605; 83735; 84484; 84702; 85025; 85610; 85730; 87040; 87086; 93005; 93010; 99284-25; J0131; J7030

== ENCOUNTER 2018-07-19 08:41 | Emergency (ER) | payer OTHER ==
[2018-07-19 08:48] VITALS: BP 143/79; PULSE 110; TEMP 99.6; BMI 32.2
[2018-07-19] MEDS ORDERED: PHENAZOPYRIDINE HCL 100 MG TABLET (FP) PO ONE (09:26)
[2018-07-19] MEDS ORDERED: KETOROLAC TROMETHAMINE 30 MG/1 ML VIAL IM ONE (09:26)
[2018-07-19 09:28] LABS: EPI CELLS 3.5 /HPF (0-5); HYALINE CASTS 26 /hpf (0-8); PH,URINE 5.5 (5.0-8.0); URINE APPEARANCE CLEAR; URINE BACTERIA 428.346 /hpf (NEGATIVE); URINE BILIRUBIN NEGATIVE (<2.0 mg/dL); URINE COLOR YELLOW; URINE GLUCOSE (UA) NEGATIVE (NEGATIVE); URINE KETONE 1+ (NEGATIVE); URINE LEUK ESTERASE 2+ (NEGATIVE); URINE NITRITE NEGATIVE (NEGATIVE); URINE PROTEIN TRACE (NEGATIVE); URINE RBC 8 /hpf (0-4); URINE WBC 31 /hpf (0-5)
--- NOTE | 2018-07-19 09:33 | PDOC ---
History of Present Illness - General Chief Complaint: Urinary Problem Stated Complaint: LOWER BACK PAIN Time Seen by Provider: 07/19/18 09:05 History Source: Patient Exam Limitations: Clinical Condition - History of Present Illness Initial Comments: 07/19/18 09:27 Patient with no significant past medical history present with complaint of one- week history of urinary frequency, dysuria, burning with urination and suprapubic pressure. Patient also reported 2 day history of lower back pains with nausea. Patient reported she had urinary infection 2 months ago and feels she has the same thing as his symptoms were similar. Patient reports 2 episodes of vomiting since yesterday. Denies dizziness, weakness. Denies any other symptoms Timing/Duration: 1 week Past History - Past Medical History Allergies/Adverse Reactions: Allergies Allergy/AdvReac Type Severity Reaction Status Date / Time No Known Allergies Allergy Verified 07/19/18 08:48 Home Medications: Ambulatory Orders Cephalexin Monohydrate [Keflex -] 500 mg PO BID #14 capsule 07/19/18 Phenazopyridine HCl [Pyridium -] 100 mg PO PC #6 tablet 07/19/18 Asthma: No Cancer: No Cardiac Disorders: No COPD: No Diabetes: No HTN: No Seizures: No Thyroid Disease: No - Reproductive History (#): 3 Para: 2 Therapeutic (s) & number: No - Immunization History Immunization Up to Date: Yes - Suicide/Smoking/Psychosocial Hx Smoking History: Never smoked Have you smoked in the past 12 months: No Hx Alcohol Use: No Drug/Substance Use Hx: No Substance Use Type: None Hx Substance Use Treatment: No Review of Systems - Review of Systems Able to Perform ROS?: Yes Is the patient limited Upper Sorbian proficient: No Constitutional: No: Chills, Fever, Malaise HEENTM: No: Symptoms Reported Respiratory: No: Symptoms reported, See HPI, Cough, Orthopnea, Shortness of Breath, SOB with Exertion, SOB at Rest, Stridor, Wheezing, Productive cough, Hemoptysis, Other Cardiac (ROS): No: Symptoms Reported, See HPI, Chest Pain, Edema, Irregular Heart Rate, Lightheadedness, Palpitations, Syncope, Chest Tightness, Other ABD/GI: Yes: See HPI, Nausea, Vomiting. No: Constipated, Diarrhea, Difficulty Swallowing, Rectal Bleeding, Abdominal cramping : Yes: See HPI, Burning, Dysuria, Frequency, Pain (suprapubic), Urgency. No: Discharge, Hematuria Musculoskeletal: Yes: See HPI, Back Pain All Other Systems: Reviewed and Negative *Physical Exam - Vital Signs Last Vital Signs Temp Pulse Resp BP Pulse Ox 99.6 F 110 H 16 143/79 100 07/19/18 08:44 07/19/18 08:44 07/19/18 08:44 07/19/18 08:44 07/19/18 08:44 - Physical Exam Comments: 07/19/18 09:29 GENERAL: Well developed, well nourished. Awake and alert. No acute distress. HEENT: Normocephalic, atraumatic. PERRLA, EOMI. No conjunctival pallor. Sclera are non-icteric. Moist mucous membranes. Oropharynx is clear. NECK: Supple. Full ROM. CARDIOVASCULAR: Regular rate and rhythm. No murmurs, rubs, or gallops. Distal pulses are 2+ and symmetric. PULMONARY: No evidence of respiratory distress. Lungs clear to auscultation bilaterally. No wheezing, rales or rhonchi. ABDOMINAL: Soft. Non-tender. Non-distended. No rebound or guarding. No organomegaly. Normoactive bowel sounds. MUSCULOSKELETAL Normal range of motion at all joints. mild b/l paravertebral muscle tenderness over lumbar region EXTREMITIES: No cyanosis. No clubbing. No edema. SKIN: Warm and dry. Normal capillary refill. No rashes. No jaundice. NEUROLOGICAL: Alert, awake, appropriate. Gait is normal without ataxia. PSYCHIATRIC: Cooperative. Good eye contact. Appropriate mood General Appearance: Yes: Nourished, Appropriately Dressed. No: Apparent Distress Medical Decision Making - Medical Decision Making 07/19/18 09:31 Patient with no significant past medical history present with complaint of one- week history of dysuria, urinary frequency and burning with urination with 3 day history of bilateral lower back pains with nausea. Exam significant for mild bilateral tenderness over the lumbar region of the back with mild suprapubic tenderness without guarding or rebound. UA, urine culture and urine hCG ordered. Urine gonorrhea and chlamydia tests ordered. Toradol 30 mg IM and Pyridium 100 mg by mouth given for dysuria. Will consider spiral CT to rule out kidney stone negative urine hCG. 07/19/18 12:58 Urine test positive. Abdominal ultrasound ordered instead CT due to in ultrasound shows no acute pathology. Patient is stable for discharge on Keflex and Pyridium with WIRELESS ARCHITECT follow-up. Patient with no vaginal bleeding or pelvic pains is stable for discharge. *DC/Admit/Observation/Transfer Diagnosis at time of Disposition: test positive UTI (urinary tract infection) Qualifiers: Urinary tract infection type: site unspecified Hematuria presence: without hematuria Qualified Code(s): N39.0 - Urinary tract infection, site not specified Lumbago without sciatica Qualifiers: Chronicity: acute Back pain laterality: bilateral Qualified Code(s): M54.5 - Low back pain - Discharge Dispostion Disposition: HOME Condition at time of disposition: Stable Decision to Admit order: No - Prescriptions Prescriptions: Cephalexin Monohydrate [Keflex -] 500 mg PO BID #14 capsule Phenazopyridine HCl [Pyridium -] 100 mg PO PC #6 tablet - Referrals Referrals: Virgen Abad MD [Staff Physician] - - Patient Instructions Printed Discharge Instructions: Managing Symptoms of , DI for Urinary Tract Infection (UTI) Additional Instructions: Take medications as prescribed. Increase fluid intake. Follow-up with referred WIRELESS ARCHITECT - Post Discharge Activity
[2018-07-19] MEDS ORDERED: KETOROLAC TROMETHAMINE 30 MG/1 ML VIAL ONE (09:36)
[2018-07-19] MEDS ORDERED: PHENAZOPYRIDINE HCL 100 MG TABLET (FP) ONE (09:36)
== END 2018-07-19 13:06 | disposition home or self-care (01) ==
LOC: JERFT 08:41 → JER 08:41 → JERFT 13:06
PROC: 3E0233Z Introduction of Anti-inflammatory into Muscle, Percutaneous Approach (ICD-10-PCS; principal; 2018-07-19)
DX: O26.899 Other specified pregnancy related conditions, unspecified trimester (principal); O23.30 Infections of other parts of urinary tract in pregnancy, unspecified trimester; Z3A.00 Weeks of gestation of pregnancy not specified
CPT/HCPCS: 76705-TC; 81003; 84703; 87086; 87186; 96372; 99281-25